=== PATIENT | male | born 2005 | race Caucasian/White ===

== ENCOUNTER 2024-07-31 10:41 | Outpatient (CLI) | payer OTHER, SELFPAY ==
--- NOTE | ~2024-07-31 | US_ITS ---
Abdominal Sonogram: Real-time sonographic imaging of the abdomen was performed. Clinical History: Elevated bilirubin Findings: The liver appears normal with no evidence of mass lesion or bile duct dilatation. Main por matheus vein demonstrates normal direction of flow. The spleen is mildly enlarged, with no evidence of ga llstone or wall thickening. 2 mm gallbladder wall polyp present. The common bile duct measures 2 mm. The visualized pancreas, aorta, and IVC are unremarkable. The right kidney measures 10.5 cm in suzie th and the left kidney measures 10.0 cm. There is no hydronephrosis or renal calculus. Impression: Splenomegaly. 2 mm gallbladder wall polyp. Reviewed, dictated and finalized at location . S PRESSER Impression: Splenomegaly. 2 mm gallbladder wall polyp.
== END 2024-07-31 10:42 | disposition home or self-care (01) ==
PROVIDERS: PCP Family Medicine; Visit Provider Pediatrics
DX: R17 Unspecified jaundice (principal); R16.1 Splenomegaly, not elsewhere classified; K82.4 Cholesterolosis of gallbladder
CPT/HCPCS: 76700

== ENCOUNTER 2024-10-16 09:07 | Outpatient (CLI) | payer OTHER, SELFPAY ==
--- NOTE | ~2024-10-16 | US_ITS ---
EXAM: ABDOMEN ULTRASOUND HISTORY: Splenomegaly COMPARISON: 07/31/2024 FINDINGS: LIVER: The liver is unremarkable in echogenicity and size. The portal vein is patent, demonstrating hepatopedal (but phasic) flow. GALLBLADDER: No stones are identified within the gallbladder. No gallbladder wall thickening or pericholecystic fluid. Redemonstration of an avascular gallbladder polyp measuring 4.1 x 3.6 x 3.1 mm, unchanged from prior. BILE DUCTS: Common bile duct measures 3.1mm. PANCREAS: Limited evaluation of the pancreas secondary to overlying bowel gas SPLEEN: The spleen is unremarkable in echogenicity and within the upper limits of normal in size laura uring 12cm in longitudinal dimension (compared with 14 cm on the previous study). RIGHT KIDNEY: 9 cm. In length. No hydronephrosis or bulky renal calculi. LEFT KIDNEY: 9.6cm in length. No hydronephrosis or renal calculi. VASCULATURE : The abdominal aorta is nonaneurysmal. The IVC is patent. IMPRESSION: Evaluation of the pancreas is limited by overlying bowel gas. Gallbladder polyp, avascular and unchanged in morphology. Borderline splenic enlargement, decreased in size from previous examination. Otherwise, unremarkable sonographic evaluation of the abdomen, as detailed above Reviewed, dictated and finalized at location A. IMPRESSION: Evaluation of the pancreas is limited by overlying bowel gas. Gallbladder polyp, avascular and unchanged in morphology. Borderline splenic enlargement, decreased in size from previous examination. Otherwise, unremarkable sonographic evaluation of the abdomen, as detailed abov e
== END 2024-10-16 09:08 | disposition home or self-care (01) ==
PROVIDERS: PCP Family Medicine; Visit Provider Family Medicine
DX: R16.1 Splenomegaly, not elsewhere classified (principal); K82.4 Cholesterolosis of gallbladder
CPT/HCPCS: 76700